=== PATIENT | female | born 1995 | race Caucasian/White ===

== ENCOUNTER 2016-10-02 09:44 | Emergency (ER) | payer MEDICAID ==
[2016-10-02 10:14] VITALS: RESP 18; TEMP 97.9; O2SAT 100
[2016-10-02] MEDS ORDERED: Sodium Chloride 0.9% 1,000 ML IV ONE (10:34)
[2016-10-02] MEDS ORDERED: Sodium Chloride 0.9% 1,000 ML ONE (10:57)
[2016-10-02 11:15] LABS: BASO % 0.6 % (0.0-2.0); EOS # 0.3 K/uL (0.0-0.7); EOS % 4.5 % (0.0-4.0); HEMATOCRIT 39.5 % (34.0-47.0); LYMPH # 2.6 K/uL (1.0-4.3); LYMPH % 43.7 % (20.0-40.0); MEAN CELL VOLUME 81.5 fL (81.0-99.0); MEAN CORPUSCULAR HEMOGLOBIN 25.5 pg (27.0-31.0); MEAN CORPUSCULAR HGB CONC 31.3 g/dL (33.0-37.0); MEAN PLATELET VOLUME 9.7 fL (7.2-11.7); MONO # 0.4 K/uL (0.0-0.8); MONO % 5.9 % (0.0-10.0); NRBC % 0.1 % (0.0-2.0); RED CELL DISTRIBUTION WIDTH 14.2 % (11.5-14.5)
--- NOTE | 2016-10-02 11:26 | C.PDOC ---
History Of Present Illness 21 y/o female, presents to the ED for evaluation of generalized weakness and decreased appetite for 3 weeks. Patient also reports occasionally feeling lightheadedness. Patient states she forces herself to eat, and feels like she has low energy. Patient states, "I think I am anemic." Otherwise, she denies vision change, nausea, vomiting, diarrhea, constipation, and numbness. Patient reports LMP on 09/26 and states it was not heavy. Time Seen by Provider: 10/02/16 10:18 Chief Complaint (Nursing): Dizziness/Lightheaded History Per: Patient History/Exam Limitations: no limitations Onset/Duration Of Symptoms: Other (3 weeks ) Current Symptoms Are (Timing): Still Present Additional History Per: Patient Past Medical History Reviewed: Historical Data, Nursing Documentation, Vital Signs Vital Signs: Last Vital Signs Temp 97.9 F 10/02/16 11:52 Pulse 61 10/02/16 11:52 Resp 18 10/02/16 11:52 BP 100/64 10/02/16 11:52 Pulse Ox 100 10/02/16 12:26 - Medical History PMH: No Chronic Diseases Surgical History: No Surg Hx Family History: States: Unknown Family Hx - Social History Hx Tobacco Use: No Hx Alcohol Use: No Hx Substance Use: No - Immunization History Hx Tetanus Toxoid Vaccination: No Hx Influenza Vaccination: No Hx Pneumococcal Vaccination: No Review Of Systems Except As Marked, All Systems Reviewed And Found Negative. Constitutional: Positive for: Weakness, Other (+decreased appetite ) Eyes: Negative for: Vision Change Cardiovascular: Negative for: Palpitations Respiratory: Negative for: Shortness of Breath Gastrointestinal: Negative for: Nausea, Vomiting, Diarrhea, Constipation Neurological: Positive for: Other (+lightheaded). Negative for: Numbness, Headache Physical Exam - Physical Exam Appears: Non-toxic, No Acute Distress Skin: Normal Color, Warm, Dry Head: Atraumatic, Normacephalic Eye(s): bilateral: Normal Inspection, EOMI Oral Mucosa: Moist Neck: Normal ROM, Supple Chest: Symmetrical, No Deformity, No Tenderness Cardiovascular: Rhythm Regular, No Murmur Respiratory: Normal Breath Sounds, No Rales, No Rhonchi, No Wheezing Gastrointestinal/Abdominal: Soft, No Tenderness, No Guarding, No Rebound Back: Normal Inspection, No Vertebral Tenderness, No Paraspinal Tenderness Extremity: Bilateral: Atraumatic, Normal Color And Temperature, Normal ROM Neurological/Psych: Oriented x3, Normal Speech Gait: Steady ED Course And Treatment - Laboratory Results Result Diagrams: 10/02/16 11:11 10/02/16 11:11 Lab Interpretation: No Acute Changes O2 Sat by Pulse Oximetry: 100 (on RA) Pulse Ox Interpretation: Normal Medical Decision Making Medical Decision Making: Prior records reviewed: Patient seen and evaluated in ED for similar symptoms in the past Progress: Labs reviewed and unremarkable. Negative test. H/H WNL On re-examination, patient is resting comfortably in no acute distress. She is laughing at bedside with her significant other. Explain results, no anemia or other abnormality. Patient feels comfortable going home and will be discharged. Patient given follow up instructions. Instructed to return to ER if symptoms worsen or new symptoms arise. Disposition Counseled Patient/Family Regarding: Diagnosis, Need For Followup - Disposition Referrals: [facility] [Outside] [facility] [Outside] Disposition: HOME/ ROUTINE Disposition Time: 11:24 Condition: STABLE Additional Instructions: Please follow up with your primary doctor or clinic Return to the emergency department at any time if symptoms persist or worsen. Instructions: Normal Exam (ED) Print Language: ESTONIAN - POA Present On Arrival: None - Clinical Impression Clinical Impression: Decrease in appetite, Negative test, Encounter for laboratory test - PA / THICKENER OPERATOR / Resident Statement MD/DO has reviewed & agrees with the documentation as recorded. - Scribe Statement The provider has reviewed the documentation as recorded by the Scribe (Sarai Agrawal) All medical record entries made by the Scribe were at my direction and personally dictated by me. I have reviewed the chart and agree that the record accurately reflects my personal performance of the history, physical exam, medical decision making, and the department course for this patient. I have also personally directed, reviewed, and agree with the discharge instructions and disposition.
[2016-10-02 11:29] LABS: CHLORIDE 100 mmol/L (98-107); POTASSIUM 4.5 mmol/L (3.6-5.2); SODIUM 140 mmol/L (132-148)
[2016-10-02 11:31] LABS: BILIRUBIN,TOTAL 0.3 mg/dL (0.2-1.3); CARBON DIOXIDE 30 mmol/L (22-30); GFR AFRICAN-AMERICAN > 60
[2016-10-02 11:32] LABS: ALB/GLOB RATIO 1.2 (1.0-2.1); ALKALINE PHOSPHATASE 69 U/L (38-126); ALT/SGPT 25 U/L (9-52); AST/SGOT 35 U/L (14-36); BLOOD UREA NITROGEN 7 mg/dL (7-17); CALCIUM 8.8 mg/dl (8.6-10.4); GLUCOSE,RANDOM 78 mg/dL (65-105); TOTAL PROTEIN 7.7 g/dL (6.3-8.3)
[2016-10-02 11:36] LABS: RBC URINE 15 /hpf (0-3); URINE BACTERIA RARE (<OCC); URINE BILIRUBIN NEGATIVE (NEGATIVE); URINE BLOOD 2+ (NEGATIVE); URINE COLOR Yellow (YELLOW); URINE GLUCOSE (UA) NORMAL (Normal); URINE KETONE NEGATIVE (NEGATIVE); URINE LEUKOCYTE ESTERASE 2+ Leu/uL (Negative); URINE PROTEIN NEGATIVE (NEGATIVE); URINE UROBILINOGEN NORMAL mg/dL (0.2-1.0); WBC URINE 10 /hpf (0-5)
[2016-10-02 11:53] VITALS: BP 100/64; PULSE 61
== END 2016-10-02 12:04 | disposition home or self-care (01) ==
LOC: C.ER 09:44
DX: Z32.02 Encounter for pregnancy test, result negative (principal)
CPT/HCPCS: 80053; 81001; 84703; 85025; 96360; 99285; J7040

== ENCOUNTER 2016-12-30 17:19 | Emergency (ER) | payer MEDICAID ==
[2016-12-30 17:43] VITALS: BP 98/62; PULSE 64; TEMP 98; O2SAT 100
--- NOTE | 2016-12-30 17:57 | C.PDOC ---
History Of Present Illness 21 year old female who presents to the ER with a complaint of a lump under her tongue. Patient states it is not painful but notes it is uncomfortable; she reports it opened up 2 weeks ago and mucous like fluid came out of it, however, it has now come back. Denies fever, chills, vomiting, difficulty swallowing, or difficulty breathing. Time Seen by Provider: 12/30/16 17:40 Chief Complaint (Nursing): Dental Pain History Per: Patient History/Exam Limitations: no limitations Onset/Duration Of Symptoms: Days Current Symptoms Are (Timing): Still Present Quality: Positive for: Other (Uncomfortable) Recent travel outside of the [place]: No Past Medical History Reviewed: Historical Data, Nursing Documentation, Vital Signs Vital Signs: Last Vital Signs Temp 98.0 F 12/30/16 17:24 Pulse 64 12/30/16 17:24 Resp 18 12/30/16 18:13 BP 98/62 L 12/30/16 17:24 Pulse Ox 100 12/30/16 21:21 - Medical History PMH: No Chronic Diseases Surgical History: No Surg Hx Family History: States: Unknown Family Hx - Social History Hx Tobacco Use: No Hx Alcohol Use: No Hx Substance Use: No - Immunization History Hx Tetanus Toxoid Vaccination: No Hx Influenza Vaccination: No Hx Pneumococcal Vaccination: No Review Of Systems Constitutional: Negative for: Fever, Chills ENT: Positive for: Other (Mouth lump). Negative for: Mouth Pain, Mouth Swelling , Throat Swelling Physical Exam - Physical Exam Appears: Non-toxic, No Acute Distress Skin: Normal Color, Warm, Dry Head: Atraumatic, Normacephalic Oral Mucosa: Moist Tongue: Normal Appearing, Other (3cm round cystic structure, no erythema, nontender, no drainage) Lips: Normal Appearing, No Swelling Gingiva: Normal Appearing, No Swelling Throat: Normal, No Erythema, No Exudate Neck: Normal, Supple Neurological/Psych: Oriented x3, Normal Speech, Normal Cognition ED Course And Treatment O2 Sat by Pulse Oximetry: 100 (Room air) Pulse Ox Interpretation: Normal Progress Note: Patient referred to see ENT specialist for removal of mucocele. Disposition - Disposition Referrals: Rasheed Welsh MD [Staff Provider] - Disposition: HOME/ ROUTINE Disposition Time: 18:00 Condition: STABLE Additional Instructions: Follow up with PMD within 1-2 days. Return to ED if feel worse. Forms: Gen Discharge Inst Togolese Print Language: FAROESE - Clinical Impression Clinical Impression: Mucocele of mouth - Scribe Statement The provider has reviewed the documentation as recorded by the Scribvenice Hoff All medical record entries made by the Catrachoibe were at my direction and personally dictated by me. I have reviewed the chart and agree that the record accurately reflects my personal performance of the history, physical exam, medical decision making, and the department course for this patient. I have also personally directed, reviewed, and agree with the discharge instructions and disposition.
[2016-12-30 18:14] VITALS: RESP 18
== END 2016-12-30 18:14 | disposition home or self-care (01) ==
LOC: C.ER 17:19
DX: K13.79 Other lesions of oral mucosa (principal)

== ENCOUNTER 2017-03-21 17:03 | Emergency (ER) | payer MEDICAID ==
[2017-03-21 17:12] VITALS: RESP 16; TEMP 98.1
[2017-03-21] MEDS ORDERED: Sodium Chloride 0.9% 1,000 ML IV ONE (17:32)
[2017-03-21 17:50] LABS: BASO % 0.3 % (0.0-2.0); EOS # 0.1 K/uL (0.0-0.7); EOS % 1.7 % (0.0-4.0); HEMATOCRIT 35.9 % (34.0-47.0); LYMPH # 2.6 K/uL (1.0-4.3); LYMPH % 31.7 % (20.0-40.0); MEAN CELL VOLUME 80.9 fL (81.0-99.0); MEAN CORPUSCULAR HEMOGLOBIN 26.3 pg (27.0-31.0); MEAN CORPUSCULAR HGB CONC 32.6 g/dL (33.0-37.0); MEAN PLATELET VOLUME 9.2 fL (7.2-11.7); MONO # 0.4 K/uL (0.0-0.8); MONO % 5.2 % (0.0-10.0); RED CELL DISTRIBUTION WIDTH 13.5 % (11.5-14.5); WHITE BLOOD COUNT 8.2 K/uL (4.8-10.8)
[2017-03-21 18:02] LABS: RBC URINE 1 /hpf (0-3); URINE BACTERIA FEW (<OCC); URINE BILIRUBIN NEGATIVE (NEGATIVE); URINE BLOOD NEGATIVE (NEGATIVE); URINE COLOR Yellow (YELLOW); URINE GLUCOSE (UA) NORMAL (Normal); URINE KETONE NEGATIVE (NEGATIVE); URINE LEUKOCYTE ESTERASE 3+ Leu/uL (Negative); URINE PROTEIN NEGATIVE (NEGATIVE); URINE UROBILINOGEN NORMAL mg/dL (0.2-1.0); WBC URINE 32 /hpf (0-5)
--- NOTE | 2017-03-21 18:14 | C.PDOC ---
History Of Present Illness 21 y/o female presents to ED with complaints of epigastric abdominal pain and vomiting for 2 days. Patient denies fever, chills, diarrhea, back pain or any other complaints at this time. LMP 03/05/17 Time Seen by Provider: 03/21/17 17:31 Chief Complaint (Nursing): Abdominal Pain History Per: Patient History/Exam Limitations: no limitations Onset/Duration Of Symptoms: Days Current Symptoms Are (Timing): Still Present Location Of Pain/Discomfort: Epigastric Past Medical History Reviewed: Historical Data, Nursing Documentation, Vital Signs Vital Signs: Last Vital Signs Temp 98.1 F 03/21/17 17:11 Pulse 67 03/21/17 17:11 Resp 16 03/21/17 17:11 BP 89/50 L 03/21/17 17:11 Pulse Ox 100 03/21/17 18:15 - Medical History PMH: No Chronic Diseases Surgical History: No Surg Hx Family History: States: No Known Family Hx - Social History Hx Tobacco Use: No Hx Alcohol Use: No Hx Substance Use: No - Immunization History Hx Tetanus Toxoid Vaccination: No Hx Influenza Vaccination: No Hx Pneumococcal Vaccination: No Review Of Systems Constitutional: Negative for: Fever, Chills Gastrointestinal: Positive for: Vomiting, Abdominal Pain. Negative for: Nausea , Diarrhea Genitourinary: Negative for: Dysuria, Hematuria Musculoskeletal: Negative for: Back Pain Skin: Negative for: Rash Physical Exam - Physical Exam Appears: Non-toxic, No Acute Distress Skin: Normal Color, Warm, Dry, No Rash Head: Atraumatic, Normacephalic Oral Mucosa: Moist Neck: Normal ROM, Supple Chest: Symmetrical Cardiovascular: Rhythm Regular Respiratory: Normal Breath Sounds, No Rales, No Rhonchi, No Wheezing Gastrointestinal/Abdominal: Soft, No Tenderness, No Guarding, No Rebound Back: No CVA Tenderness Neurological/Psych: Oriented x3 ED Course And Treatment - Laboratory Results Result Diagrams: 03/21/17 17:45 03/21/17 17:45 Lab Interpretation: Normal O2 Sat by Pulse Oximetry: 100 (RA) Pulse Ox Interpretation: Normal Progress Note: Treated with IVF NSS and zofran. Patient left before discharge Reassessment Condition: Improved Medical Decision Making Medical Decision Making: Plan: Labs, Pepcid, test, zofran Disposition Counseled Patient/Family Regarding: Studies Performed, Diagnosis, Need For Followup, Rx Given - Disposition Disposition: HOME/ ROUTINE Disposition Time: 19:10 Condition: IMPROVED Instructions: Gastroenteritis (ED) Forms: [employer] (Romanian) - Clinical Impression Clinical Impression: Vomiting - PA / CAMERA MECHANIC / Resident Statement MD/DO has reviewed & agrees with the documentation as recorded. - Scribe Statement The provider has reviewed the documentation as recorded by the Catrachoibvenice Guthrie All medical record entries made by the Catrachoibvenice were at my direction and personally dictated by me. I have reviewed the chart and agree that the record accurately reflects my personal performance of the history, physical exam, medical decision making, and the department course for this patient. I have also personally directed, reviewed, and agree with the discharge instructions and disposition.
[2017-03-21 18:54] LABS: CHLORIDE 98 mmol/L (98-107); POTASSIUM 3.9 mmol/L (3.6-5.2); SODIUM 135 mmol/L (132-148)
[2017-03-21 18:56] LABS: BILIRUBIN,TOTAL 0.2 mg/dL (0.2-1.3); GFR AFRICAN-AMERICAN > 60
[2017-03-21 18:57] LABS: ALKALINE PHOSPHATASE 72 U/L (38-126); ALT/SGPT 33 U/L (9-52); AST/SGOT 24 U/L (14-36); BLOOD UREA NITROGEN 9 mg/dL (7-17); CALCIUM 8.8 mg/dl (8.6-10.4); CARBON DIOXIDE 26 mmol/L (22-30); GLUCOSE,RANDOM 80 mg/dL (65-105)
[2017-03-21 19:32] VITALS: BP 101/66; PULSE 78; O2SAT 98
== END 2017-03-21 19:32 | disposition home or self-care (01) ==
LOC: C.ER 17:03
DX: R11.10 Vomiting, unspecified (principal)
CPT/HCPCS: 80053; 81001; 83690; 84703; 85025; 96374; 96375; 99285; J2405; J7040

== ENCOUNTER 2017-05-22 12:09 | Emergency (ER) | payer SELFPAY ==
[2017-05-22 12:21] VITALS: BMI 16.0
[2017-05-22 12:27] VITALS: RESP 18; O2SAT 100
[2017-05-22 13:28] LABS: RBC URINE 1 /hpf (0-3); URINE BACTERIA FEW (<OCC); URINE BILIRUBIN NEGATIVE (NEGATIVE); URINE BLOOD NEGATIVE (NEGATIVE); URINE COLOR Yellow (YELLOW); URINE GLUCOSE (UA) NORMAL (Normal); URINE KETONE NEGATIVE (NEGATIVE); URINE LEUKOCYTE ESTERASE 3+ Leu/uL (Negative); URINE PROTEIN NEGATIVE (NEGATIVE); URINE UROBILINOGEN NORMAL mg/dL (0.2-1.0); WBC URINE 12 /hpf (0-5)
[2017-05-22 13:59] VITALS: BP 101/69; PULSE 84; TEMP 97.9
--- NOTE | 2017-05-22 13:59 | C.PDOC ---
History Of Present Illness 21 year old female presents to the ED for evaluation of suprapubic abdominal pain that radiates to her lower back and dysuria x 1 week. Patient also complains of nausea and dizziness for the past week. She denies fever, chills, vomiting, diarrhea. Time Seen by Provider: 05/22/17 13:01 Chief Complaint (Nursing): Abdominal Pain History Per: Patient History/Exam Limitations: no limitations Onset/Duration Of Symptoms: Days (1 week ) Current Symptoms Are (Timing): Still Present Location Of Pain/Discomfort: Suprapubic Radiation Of Pain To:: Back (lower ) Quality Of Discomfort: "Pain" Associated Symptoms: Nausea, Back Pain (lower ), Urinary Symptoms (dysuria ). denies: Fever, Chills, Vomiting, Diarrhea Additional History Per: Patient Abnormal Vaginal Bleeding: No Past Medical History Reviewed: Historical Data, Nursing Documentation, Vital Signs Vital Signs: Last Vital Signs Temp 97.9 F 05/22/17 13:58 Pulse 84 05/22/17 13:58 Resp 18 05/22/17 13:58 BP 101/69 05/22/17 13:58 Pulse Ox 100 05/22/17 21:30 - Medical History PMH: No Chronic Diseases Surgical History: No Surg Hx Family History: States: Unknown Family Hx - Social History Hx Tobacco Use: No Hx Alcohol Use: No Hx Substance Use: No - Immunization History Hx Tetanus Toxoid Vaccination: No Hx Influenza Vaccination: No Hx Pneumococcal Vaccination: No Review Of Systems Constitutional: Negative for: Fever Gastrointestinal: Positive for: Nausea, Abdominal Pain. Negative for: Vomiting , Diarrhea Musculoskeletal: Positive for: Back Pain Neurological: Positive for: Dizziness Physical Exam - Physical Exam Appears: Non-toxic, No Acute Distress Skin: Normal Color, Warm, Dry Head: Atraumatic, Normacephalic Eye(s): bilateral: Normal Inspection Ear(s): Bilateral: Normal Nose: Normal, No Discharge Oral Mucosa: Moist Throat: Normal, No Erythema, No Exudate Neck: Supple Chest: Symmetrical, No Deformity, No Tenderness Cardiovascular: Rhythm Regular, No Murmur Respiratory: Normal Breath Sounds, No Rales, No Rhonchi, No Wheezing Gastrointestinal/Abdominal: Soft, No Tenderness, No Guarding, No Rebound Back: No CVA Tenderness Extremity: Normal ROM, Capillary Refill (less than 2 seconds ) Neurological/Psych: Oriented x3, Normal Speech, Normal Cognition Gait: Steady ED Course And Treatment O2 Sat by Pulse Oximetry: 100 (on RA) Pulse Ox Interpretation: Normal Medical Decision Making Medical Decision Making: urine culture obtained and sent to lab for further evaluation. UA ordered. Results are indicative of urinary tract infection. Ciproflaxin PO, Pyridium PO, and Reglan PO administered. Disposition - Disposition Referrals: [facility] [Outside] Disposition: HOME/ ROUTINE Disposition Time: 13:57 Condition: GOOD Additional Instructions: Follow up with the medical doctor within 1-2 days. Return if worsened. Prescriptions: Ciprofloxacin [Cipro] 1 tab PO BID #14 tab Metoclopramide [Reglan] 1 tab PO TID PRN #25 tab PRN Reason: Nausea/Vomiting Phenazopyridine HCl [Pyridium] 200 mg PO TID #10 tablet Instructions: Urinary Tract Infection in Women (ED) Forms: [employer] (Sami) Print Language: SAMOAN - Clinical Impression Clinical Impression: UTI (urinary tract infection), Nausea, Dizziness and giddiness - PA / HOMOGENIZER OPERATOR / Resident Statement MD/DO has reviewed & agrees with the documentation as recorded. - Scribe Statement The provider has reviewed the documentation as recorded by the Scribe (Sarai Agrawal) All medical record entries made by the Scribe were at my direction and personally dictated by me. I have reviewed the chart and agree that the record accurately reflects my personal performance of the history, physical exam, medical decision making, and the department course for this patient. I have also personally directed, reviewed, and agree with the discharge instructions and disposition.
== END 2017-05-22 14:06 | disposition home or self-care (01) ==
LOC: C.ER 12:09
DX: N39.0 Urinary tract infection, site not specified (principal); R42 Dizziness and giddiness; R11.0 Nausea